=== PATIENT | female | born 1995 | race Caucasian/White ===

== ENCOUNTER → 2018-01-31 | Outpatient (REF) | payer BC | LOC: ZZSENDIN 08:55 | PROVIDERS: ATTEND Student in an Organized Health Care Education/Training Program | DX: Z3A.33 33 weeks gestation of pregnancy (principal) | CPT/HCPCS: 84112 ==

== ENCOUNTER 2018-03-14 18:29 | Inpatient (IN) | payer BC, MEDICAID ==
[~2018-03-14] VITALS: Ht 165.1 cm; Wt 94.3 kg
[~2018-03-14 18:29] MED LIST: EPIDURAL KEYS XX PRN
[2018-03-14] MEDS ORDERED: OXYTOCIN 30 UNIT/D5LR 500 ML 500 ML IV PRN (18:59)
[2018-03-14] MEDS ORDERED: FAMOTIDINE(*) 20MG/50ML PREMIX 50 ML IVPB PRN (18:59)
[2018-03-14] MEDS ORDERED: FENTANYL/ROPIVACAINE 100 ML BAG EPI PRN (19:00)
[2018-03-14] MEDS ORDERED: fentaNYL CITR 100 MCG/2 ML AMP IVP PRN (19:00)
[2018-03-14] MEDS ORDERED: LIDO/EPI 2% MPF 1:200,000 20ML EPI PRN (19:00)
[2018-03-14] MEDS ORDERED: FLUSH 10 ML SYR IVP PRN (19:00)
[2018-03-14] MEDS ORDERED: LIDOCAINE/PF 2% 200MG/10ML AMP 200 MG/10 ML AMPUL EPI PRN (19:00)
[2018-03-14] MEDS ORDERED: LIDOCAINE 1% LOCAL 300 MG/30ML INJ PRN (19:00)
[2018-03-14] MEDS ORDERED: BUPIVACAINE 0.25% MPF INJ EPI PRN (19:00)
[2018-03-14] MEDS ORDERED: fentaNYL CITR 100 MCG/2 ML AMP IT PRN (19:00)
[2018-03-14] MEDS ORDERED: cefOXitin SOD 2 GM VIAL 2 GM in NS(*) 0.9% 100 ML BAG 100 ML IVPB PRN (19:00)
[2018-03-14] MEDS ORDERED: BUPIVACAINE 0.5% INJ 30ML VIAL EPI PRN (19:00)
[2018-03-14] MEDS ORDERED: LIDOCAINE/SOD BICARB 8.4% SYR SC PRN (19:00)
[2018-03-14] MEDS ORDERED: METOCLOPRAMIDE 10 MG/2 ML SDV IVP PRN (19:00)
[2018-03-14 19:32] LABS: PLATELET COUNT, AUTOMATED 244 K/uL (150-450)
[2018-03-14 19:53] VITALS: BP 135/93; Ht 165.1 cm; Wt 94.3 kg
[2018-03-14] MEDS: LR(*) 1000 ML BAG 1,000 ML IV SCH ×2 (19:56→20:18)
--- NOTE | 2018-03-14 20:37 | History & Physical ---
History of Present Illness Age of Patient: 22 : 1 Para or TPAL: 0000 EDC per LMP: March 19, 2018 Estimated Gestational Age: 39.3 Chief Complaint loss of fluid History of Present Illness The patient is a 22 year old 1 para 0000 admitted at 39 3/7 weeks estimated gestational age with an estimated date of delivery 03/19/18 . Patient is admitted with complaint of loss of fluid. No vaginal bleeding. Good movement and occasional contractions. She was evaluated for active labor. She had course complicated by late entry to care. Her record was reviewed. Exam General Exam Cardiovascular: Regular Rate and Rhythm Respiratory: Clear to Auscultation Abdomen: Gravid - Non-Tender Extremities: No Edema Cervical Dialation: 3 Cervical Effacement (%): 95 Cervical Consistency: Soft Cervical Position: Anterior Station: -1 Presentation: Vertex Uterine Contractions(Q min): 3 Uterine Contraction Strength: Moderate Fetus Heart Tones: 130 Heart Tone Variabilty: Moderate FHT Accelerations: 15X15 FHT Category: I Medical Decision Making Data Points Result Diagram: 03/14/181924 Assessment and Plan Problems: (1) Active labor at term Assessment & Plan: patient with SROM, meconium stained, will monitor for cervical change Copies to: DAYNE ZHOU MD, JOHN MD March 14, 2018 20:37
--- NOTE | 2018-03-14 20:39 | Anesthesia OB Pre-Anes Eval ---
History of Present Illness Anesthesia Start Date: March 14, 2018 Anesthesia Start Time: 19:55 OB Anesthesia Diagnosis: spontaneous labor Result Diagram: 03/14/18 1925 Height (Inches): 65 RABIA GALLARDO CRNA March 14, 2018 20:39
--- NOTE | 2018-03-14 20:42 | Procedure Note ---
Anesthetic Placement Note Anesthesia Plan: LEB Permit for Anesthesia Signed: Yes Anesthesia Technique: Patient Sitting Anesthesia Prep: Betadine Interspace: L 3-4 Local Anesthetic: 1% Lidocaine Amount Local - cc's: 3 Anesthesia Needle: 17g Touhy/Schliff Anesthesia Attempts: 1 Loss of Resistance: Air Depth of LENORA (cm): 5 Catheter Insertion (cm): 5 Catheter Type: Escobar - Spring Wound Epidural Dressing: Tegaderm Anesthesia Medications: Epidural Test Dose: 1.5 Lido/Epi (1:200,000), Dose - mL (5), Time (2007), Negative Epidural Loading Dose: 0.2% Ropivicaine, With Fentanyl 2mcg/ml, Dose - ml (12) , Time (2013) Epidural Infusion: 0.2% Ropivicaine, With Fentanyl 2mcg/ml, Start Time: (2020) Epidural Pump Setting: Bolus Dose - mL (6), Lockout - Minutes (10), Maintenance Rate - mL/hr (10), Maximum per Hour - mL (22) Complications: None RABIA GALLARDO CRNA March 14, 2018 20:42
--- NOTE | 2018-03-14 20:45 | Anesthesia Progress Note ---
Progress/Maintenance Anesthesia Note Date: March 14, 2018 Anesthesia Note Time: 20:44 Pain Intensity: 0 Pump: On Pump Rate (ML/HR): 10 Sensory Level: t 8 Dilatation: 4 Position: Right RABIA GALLARDO CRNA March 14, 2018 20:45
[2018-03-14] MEDS ORDERED: PNV1TABL77 PO (21:23)
[2018-03-14] MEDS ORDERED: NS(*) 0.9% 1000 ML BAG 1,000 ML PV PRN (21:41)
[2018-03-15] MEDS ORDERED: ONDANSETRON 4 MG/2 ML VIAL IVP PRN (00:45)
[2018-03-15] MEDS ORDERED: ROPIVACAINE 0.2% 20 ML VIAL ONE (01:05)
--- NOTE | 2018-03-15 01:44 | Anesthesia Progress Note ---
Progress/Maintenance Anesthesia Note Date: March 15, 2018 Anesthesia Note Time: 01:05 Pain Intensity: 9 Pump: Off Dilatation: 6 Anesthesia Treatment: epidural not working. blood aspirated into syringe with 100 mcgs fentanyl RABIA GALLARDO CRNA March 15, 2018 01:44
[2018-03-15] MEDS: LR(*) 1000 ML BAG 1,000 ML IV SCH ×2 (01:48→02:31)
--- NOTE | 2018-03-15 01:55 | Procedure Note ---
Anesthetic Placement Note Anesthesia Plan: LEB Permit for Anesthesia Signed: Yes Anesthesia Technique: Patient Sitting Anesthesia Prep: Betadine Interspace: L 2-3 Local Anesthetic: 1% Lidocaine Amount Local - cc's: 3 Anesthesia Needle: 17g Touhy/Schliff Anesthesia Attempts: 2 Loss of Resistance: Air Depth of LENORA (cm): 5 Catheter Insertion (cm): 5 Catheter Type: Escobar - Spring Wound Epidural Dressing: Tegaderm Comment: aspirating blood through epidural catheter. catheter removed intact. epidural replaced one level up at L2-3 . No problems noted. good relief, pain score 0. Anesthesia Medications: Epidural Test Dose: 1.5 Lido/Epi (1:200,000), Dose - mL (5), Time (0119), Negative Epidural Loading Dose: 0.2% Ropivicaine, With Fentanyl 2mcg/ml, Dose - ml (7), Time (0125) Epidural Infusion: 0.2% Ropivicaine, With Fentanyl 2mcg/ml, Start Time: (0135) Epidural Pump Setting: Bolus Dose - mL (5), Lockout - Minutes (10), Maintenance Rate - mL/hr (12), Maximum per Hour - mL (22) Complications: None Comment: Ropivicaine/fentanyl bolus stated above was the remainder of the first epidural bag. Additional 5 ml of 0.2% ropivicaine given for a total bolus volume of 12 mls. the 2 mls of fentanyl in the syringe with blood {aspiration} was wasted. RABIA GALLARDO CRNA March 15, 2018 01:55
[2018-03-15] MEDS: ePHEDrine 25 MG/5 ML DISP.SYR IVP PRN ×3 (02:18→02:46)
--- NOTE | 2018-03-15 06:29 | OB Delivery Note ---
Delivery Note Vaginal Delivery Type: Spont. Vaginal Delivery Delivery Date: March 15, 2018 Delivery Time: 05:40 Estimated Gestational Age(wks): 39.3 Delivery Anesthesia: Epidural, Local Sex: Female Weight (gms): 2722 Apgars: 1 Minute (7), 5 Minute (8) Repair Needed: Laceration, Vaginal, Perineal, 2nd Degree Estimated Blood Loss: 350 Notes: SROM SPONTANEOUS LABOR, MADE SLOW BUT STEADY PROGRESS. PUSHED FOR 2 HOURS AND DELIVERED INFANT. BULB SUCTIONED CORD CLAMPED X 2 CUT TAKEN TO WARMER. PLACENTA DELIVERED INTACT. 2ND DEGREE TEAR REPAIRED WITH 3-0 VICRYL. Card Room Manager in Attendence: Yes Copies to: DAYNE ZHOU MD, JOHN MD March 15, 2018 06:29
[2018-03-15] MEDS ORDERED: GLYCERIN/WITCH HAZEL LEAF 1 PK TOP PRN (06:30)
[2018-03-15] MEDS ORDERED: MAGNESIUM HYDROXIDE* 30ML UDCP PO PRN (06:30)
[2018-03-15] MEDS ORDERED: MEASLES,MUMP,RUBELLA VAC 0.5ML SC ONE (06:30)
[2018-03-15] MEDS ORDERED: ACETAMINOPHEN 325 MG TAB PO PRN (06:30)
[2018-03-15] MEDS ORDERED: INFLUENZA VIRUS VAC 0.5 ML SYR IM ONLY ONE (06:30)
[2018-03-15] MEDS ORDERED: LANOLIN OINT 7 GM TUBE TP PRN (06:30)
[2018-03-15] MEDS ORDERED: DIPHTH/TETANUS/ACEL. PERTUSSIS IM ONE (06:30)
[2018-03-15] MEDS ORDERED: BENZOCAINE 20% 60 ML BTL TP PRN (06:30)
[2018-03-15] MEDS ORDERED: HYDROCORTISONE 2.5% CR 30GM TB PR PRN (06:30)
[2018-03-15] MEDS ORDERED: HYDROmorphone HCL 2 MG TAB PO PRN (06:30)
[2018-03-15] MEDS ORDERED: BUPIVACAINE 0.25% MPF INJ INFIL ONE (08:20)
[2018-03-15] MEDS: DOCUSATE CALCIUM 240 MG CAP PO SCH ×2 (08:49→20:43)
[2018-03-15] MEDS: IBUPROFEN 800 MG TAB PO SCH ×2 (08:49→16:55)
[2018-03-15] MEDS: MULTIVITAMINS (PRENATAL) TAB PO SCH (08:49)
[2018-03-15] MEDS ORDERED: BUPIV/EPI 0.25% 1:200,000 50ML INFIL ONE (09:01)
[2018-03-15 12:35] VITALS: BP 109/64
[2018-03-15 19:05] VITALS: BP 103/56
[2018-03-15 23:30] VITALS: BP 94/54
[2018-03-16] MEDS: IBUPROFEN 800 MG TAB PO SCH ×3 (01:45→17:40)
[2018-03-16 03:40] VITALS: BP 92/52
[2018-03-16] MEDS: DOCUSATE CALCIUM 240 MG CAP PO SCH ×2 (08:39→20:56)
[2018-03-16] MEDS: MULTIVITAMINS (PRENATAL) TAB PO SCH (08:39)
--- NOTE | 2018-03-16 08:39 | OB/GYN Progress Note ---
OB Subjective Progress Notes Subjective Doing well. Pain controlled and ambulating well. Voiding without difficulty. Bleeding lightening. GI: NEG Nausea : Voiding Well Pain: Mild OB Objective Physical Exam Vital Signs Date Time Temp Pulse Resp B/P (MAP) Pulse Ox O2 Delivery O2 Flow Rate FiO2 03/16/18 03:40 98.4 73 16 92/52 (65) Room Air 03/15/18 12:35 93 General Appearance: Alert/Awake/No Acute Distress Neurological: No Gross deficits Cardiovascular: Normal Rhythm & Peripheral Pulses, Regular Rate and Rhythm Respiratory: No Respiratory Distress, Clear to Auscultation Abdomen: Soft, Non-Tender, Non-Distended, Fundus Firm, Non-Tender Extremities: No Edema Psychological: Alert & Oriented X3, Appropriate Mood & Affect Result Diagram: 03/16/18 0611 Assessment and Plan PROJECT ASSISTANT Plan: Discharge Home Today Problems: (1) Active labor at term (2) care and examination immediately after delivery Assessment & Plan: Routine care today. Discharge home later. Reviewed discharge instructions and to be seen at 6 weeks. Call with issues. DORON JUAREZ MD March 16, 2018 08:39
[2018-03-16 08:40] VITALS: BP 116/66
[2018-03-16] MEDS ORDERED: IBUP800T37 PO (08:42)
--- NOTE | 2018-03-16 08:44 | OB/GYN Discharge Summary ---
Discharge Summary Reason for Hosp/Final Diag: (1) Active labor at term (2) care and examination immediately after delivery Hospital Course & Plan: Routine care today. Discharge home later. Reviewed discharge instructions and to be seen at 6 weeks. Call with issues. Lates Vital Signs Vital Signs Date Time Temp Pulse Resp B/P (MAP) Pulse Ox O2 Delivery O2 Flow Rate FiO2 03/16/18 03:40 98.4 73 16 92/52 (65) Room Air 03/15/18 12:35 93 Weight (Pounds): 208 Result Diagram: 03/16/18 0611 Condition: Improved Discharge: Home, Self [facility] Meds Reported Medications Pnv Cmb#21/Iron/Folic Acid ( COMPLETE CAPLET) 1 Each Tablet, 1 EACH PO 03/14/18 Follow up Referrals: [facility] - In 6 Weeks @ [facility] with Jonah Huerta Md Follow up with: Dr. Huerta [phone] Follow up in: 6 wks PP or PO Discharge Diet: As Tolerates Discharge Activity: As Tolerates, No Heavy Lifting x 6 wks, No Heavy Lifting > 10lb, Pelvic Rest Copies to: JONAH HUERTA MD, TRAVIS MD March 16, 2018 08:44
[2018-03-16] MEDS: LR(*) 1000 ML BAG 1,000 ML IV SCH ×2 (10:59→20:59)
[2018-03-16 14:00] VITALS: BP 117/73
[2018-03-16 19:25] VITALS: BP 111/71
[2018-03-16 23:00] VITALS: BP 100/58
[2018-03-17] MEDS: IBUPROFEN 800 MG TAB PO SCH ×2 (01:00→08:32)
[2018-03-17 03:15] VITALS: BP 97/60
--- NOTE | 2018-03-17 07:30 | OB/GYN Progress Note ---
OB Subjective Progress Notes Subjective Pain controlled, Tolerating diet and activity. Baby . Normal lochia. GI: POS Flatus, NEG Nausea, NEG Vomiting : Voiding Well Pain: Mild OB Objective Physical Exam Vital Signs Date Time Temp Pulse Resp B/P (MAP) Pulse Ox O2 Delivery O2 Flow Rate FiO2 03/17/18 03:15 98.1 69 16 97/60 (72) Room Air 03/15/18 12:35 93 General Appearance: Alert/Awake/No Acute Distress Neurological: No Gross deficits Cardiovascular: Normal Rhythm & Peripheral Pulses, Regular Rate and Rhythm Respiratory: No Respiratory Distress, Clear to Auscultation Abdomen: Soft, Non-Tender, Non-Distended, Fundus Firm, Non-Tender Extremities: No Edema Psychological: Alert & Oriented X3, Appropriate Mood & Affect Result Diagram: 03/16/18 0611 Assessment and Plan Problems: (1) Active labor at term (2) care and examination immediately after delivery Assessment & Plan: Pain controlled, Tolerating diet and activity. Baby . Normal lochia. DAYNE ZHOU MD March 17, 2018 07:30
[2018-03-17 08:30] VITALS: BP 108/64
[2018-03-17] MEDS: DOCUSATE CALCIUM 240 MG CAP PO SCH (08:31)
[2018-03-17] MEDS: MULTIVITAMINS (PRENATAL) TAB PO SCH (08:31)
== END 2018-03-17 13:22 | disposition home or self-care (01) | DRG 775 ==
LOC: OB 18:29 → OBSVTOIN 18:29
PROVIDERS: ADMIT Obstetrics & Gynecology; ATTEND Obstetrics & Gynecology
PROC: 10E0XZZ Delivery of Products of Conception, External Approach (ICD-10-PCS; principal; 2018-03-15)
PROC: 0KQM0ZZ Repair Perineum Muscle, Open Approach (ICD-10-PCS; 2018-03-15)
DX: O77.0 Labor and delivery complicated by meconium in amniotic fluid (principal); O70.1 Second degree perineal laceration during delivery; Z3A.39 39 weeks gestation of pregnancy; Z37.0 Single live birth
CPT/HCPCS: 36415; 85025; 85027; 86850; 86900; 86901; J2405; J2590; J2795; J3010; J7120; S0020

== ENCOUNTER → 2019-05-17 | Outpatient (CLI) | payer BC, MEDICAID ==
[2018-03-14 19:53] VITALS: BMI 34.6
[~2019-05-17] MED LIST changes: -EPIDURAL KEYS XX PRN; +ESCI10TA8 PO; +HYDR-4225 PO; +IBUP800T37 PO; +IOPAMIDOL 76% 100 ML INFUS BTL 100 ML ONE; +NS(*) 0.9% 50 ML BAG 50 ML ONE; +ONDA4TAB9 PO; +PNV1TABL77 PO; +TRAM-420 PO
--- NOTE | 2019-05-17 18:45 | RADIOLOGY IMAGING REPORT ---
FACILITY: [facility] [place] PATIENT NAME: Anya Robledo : 1995 MR: [id number] V: [id number] EXAM DATE: ORDERING PHYSICIAN: DAYNE MONTELONGO TECHNOLOGIST: Location: [facility] - [place] Patient: Anya Robledo : 1995 Visit/Account:[id number] Date of Sevice: 05/17/2019 CT angiogram chest with contrast Indication: Chest pain. Shortness of breath. Comparison: None available. Technique: Axial CT images are obtained through the chest after administration of 75 mL Isovue 370 IV contrast. Reformatted coronal and sagittal images were reviewed as well as coronal MIP images. One of the following dose optimization techniques was utilized in the performance of this exam: auto mated exposure control; adjustment of the mA and/or kV according to the patient's size; or use of an iterative reconstruction technique. Specific details can be referenced in the facility's radiology C T exam operational policy. FINDINGS: No evidence of filling defect within the pulmonary vasculature to suggest pulmonary embolus. Heart is normal size without pericardial effusion. Aorta shows no aneurysm or dissection. Mediastinum and hilar regions show no enlarged lymph node or abnormal density. Residual thymus. Lungs show no consolidation, pleural effusion, pneumothorax, nodule or focal interstitial opacities. Airways are clear. Bony structures show no acute fractures or aggressive bony lesions. Chest wall shows no enlarged axil shahla lymph nodes or masses. Limited views of the upper abdomen are unremarkable. IMPRESSION: 1. No evidence of pulmonary embolus. 2. No acute cardiothoracic abnormality Report Dictated By: Tonio Green at 05/17/2019 6:30 PM Report E-Signed By: Tonio Green at 05/17/2019 6:38 PM WSN:[id number]
== END ==
LOC: LAB 17:49
PROVIDERS: ATTEND Nurse Practitioner Family
DX: R07.9 Chest pain, unspecified (principal); R79.1 Abnormal coagulation profile
CPT/HCPCS: 71275; J7050; Q9967

== ENCOUNTER 2019-05-21 06:05 | Emergency (ER) | payer BC, MEDICAID ==
[2018-03-14 19:53] VITALS: Wt 94.3 kg
[~2019-05-21 06:05] MED LIST changes: -ESCI10TA8 PO; -HYDR-4225 PO; -IOPAMIDOL 76% 100 ML INFUS BTL 100 ML ONE; -NS(*) 0.9% 50 ML BAG 50 ML ONE; -ONDA4TAB9 PO; -TRAM-420 PO
[2019-05-21] MEDS ORDERED: HYDR-4225 PO (06:22)
[2019-05-21] MEDS ORDERED: ESCI10TA8 PO (06:22)
--- NOTE | 2019-05-21 06:22 | ER Report ---
History and Physical Time Seen By MD: 06:19 Hx. of Stated Complaint: PATIENT HAS BEEN HAVING PAIN IN HER UPPER BACK/NECK STIFFNESS, DIZZINESS AND A LOT OF NAUSEA, PATIENT STATES THAT IT SEEM LIKE SHE HAS A FLIM IN HER VISUAL FIELD, CAN'T FOCUS SIGHT. SYMPTOMS STARTED ON TUESDAY, SHE WAS SEEN AT URGENT CARE, THEY SENT HER FOR A SCAN OF CHEST TO CHECK FOR BLOOD CLOTS, EVERYTHING WAS NEGATIVE. PATIENT HAS A HEADACHE IN BUDDHIST, FEELS LIKE PRESSURE. (ROBERTA CAMEJO MD) Time Seen By MD: 07:16 (FORTUNATO CONTRERAS DO) HPI/ROS CHIEF COMPLAINT: multiple symptoms HISTORY OF PRESENT ILLNESS: This is a 23 year old female. Since , she has not been feeling well, about 4 days now. She has headache with vision changes. Headache is a pressure feeling throughout the head, rated about a 4 on 1-10 scale. Constant. Associated vision changes with difficulty focusing vision and a sensation of a film over her vision. She has had ongoing nausea as well, but no vomiting. Poor appetite because even thinking about eating will cause the nausea as well. She has been dizzy with a lightheaded feeling. She thought this could be due to , but had a negative home test. She denies cough of shortness of breath. No chest pain. She has no abdominal pain. She has no dysuria, no diarrhea. She does have pain in her neck, cervical spine, that worsens with flexion. She denies sore throat. REVIEW OF SYSTEMS: As above. (ROBERTA CAMEJO MD) HPI/ROS Please see Dr. Camejo note (FORTUNATO CONTRERAS DO) Allergies: Coded Allergies: No Known Drug Allergies (Unverified , 05/21/19) Home Meds Active Scripts Ondansetron 4 Mg Odt (ONDANSETRON 4 MG ODT) 4 Mg Tab.rapdis, 4 MG PO ONCE, #30 TAB Prov:FORTUNATO CONTRERAS DO 05/21/19 Tramadol Hcl (TRAMADOL HCL) 50 Mg Tablet, 50 MG PO Q6H PRN for PAIN, #12 TAB 0 Refills Prov:FORTUNATO CONTRERAS DO 05/21/19 Reported Medications Hydroxyzine Hcl (HYDROXYZINE HCL) 25 Mg Tablet, 1 TAB PO PRN for Anxiety 05/21/19 Escitalopram Oxalate (ESCITALOPRAM OXALATE) 10 Mg Tablet, 10 MG PO QDAY, TAB 05/21/19 Discontinued Reported Medications Pnv Cmb#21/Iron/Folic Acid ( COMPLETE CAPLET) 1 Each Tablet, 1 EACH PO 03/14/18 Discontinued Scripts Ibuprofen (IBUPROFEN) 800 Mg Tablet, 800 MG PO Q8H PRN for PAIN, #30 TAB 0 Refills Prov:DORON JUAREZ MD 03/16/18 Past Medical/Surgical History Sinus infections and excess ear wax production, history of tonsillectomy and wisdom teeth extraction (ROBERTA CAMEJO MD) Reviewed Nurses Notes: Yes (ROBERTA CAMEJO MD) Hx Smoking: No Smoking Status: Never Smoker Exposure to Second Hand Smoke?: No (ROBERTA CAMEJO MD) Constitutional Vital Sign - Last 24 Hours 05/21/19 05/21/19 05/21/19 05/21/19 06:10 06:20 06:30 06:35 Temp 98.0 Pulse 75 85 90 Resp 15 21 18 B/P (MAP) 117/76 115/77 (90) Pulse Ox 96 96 97 O2 Delivery Room Air 05/21/19 05/21/19 05/21/19 05/21/19 06:50 07:00 07:05 07:20 Pulse 82 82 92 Resp 13 18 24 B/P (MAP) 115/80 (92) Pulse Ox 96 96 91 (CONTRERAS,FORTUNATO S DO) Physical Exam General Appearance: The patient is alert. No acute distress. Non-toxic in appearance. Eyes: Pupils are equal, round. Reactive to light. No pallor, injection or icterus. Extraocular movements are intact. No nystagmus. ENT: Mucous membranes are moist. Normal oral mucosa. Posterior oropharynx is normal. Normal nasal mucosa. Has cerumen in both ears, small amount in the left ear, larger amount in the right ear. Right ear canal is a little inflamed. Otherwise normal tympanic membranes and canals Neck: Supple and non tender. No lymphadenopathy. Respiratory: Lungs are clear to auscultation. There are no retractions or accessory muscle use. Cardiovascular: Regular rate and rhythm. No murmurs, gallops or rubs. Normal capillary refill. No edema. Gastrointestinal: Abdomen is soft and non tender. Nondistended. Normal active b owel sounds. No costovertebral angle tenderness with percussion. Neurological: Alert and oriented x3. Cranial nerves II through XII show no acute deficits on my exam. No focal neurologic deficits in the extremities. Positive Brudzinski's, negative Kernig sign Skin: Warm and dry. No rashes. Musculoskeletal: Extremities are nontender. Full range of motion. No tenderness in palpation of the thoracic and lumbar spine. She does have pain in the cervical spine. DIFFERENTIAL DIAGNOSIS: After history and physical exam, differential diagnosis was considered for patient with fever, headache, neck pain, dizziness, vision changes. At this point we'll do a workup looking for causes of fever, we'll get a CT scan of the head, and we'll need to consider possible meningitis as well. (ROBERTA CAMEJO MD) Physical Exam Please see Dr. Camejo note (FORTUNATO CONTRERAS DO) Medical Decision Making Data Points Result Diagram: 05/21/19 0648 05/21/19 0648 Laboratory Hematology Test 05/21/19 06:48 White Blood Count 7.1 k/uL (4.5-11.0) Red Blood Count 5.03 M/uL (4.17-5.56) Hemoglobin 15.0 g/dL (12.0-16.0) Hematocrit 43.5 % (34.0-47.0) Mean Corpuscular Volume 86.5 fL (80.0-96.0) Mean Corpuscular Hemoglobin 29.9 pg (26.0-33.0) Mean Corpuscular Hemoglobin Concent 34.5 g/dL (32.0-36.0) Red Cell Distribution Width 13.6 % (11.5-14.5) Platelet Count 242 K/uL (150-450) Mean Platelet Volume 8.8 fL (7.2-11.1) Neutrophils (%) (Auto) 51.7 % (39.4-72.5) Lymphocytes (%) (Auto) 35.7 % (17.6-49.6) Monocytes (%) (Auto) 9.2 % (4.1-12.4) Eosinophils (%) (Auto) 2.8 % (0.4-6.7) Basophils (%) (Auto) 0.6 % (0.3-1.4) Nucleated RBC Relative Count (auto) 0.1 /100WBC Neutrophils # (Auto) 3.7 K/uL (2.0-7.4) Lymphocytes # (Auto) 2.5 K/uL (1.3-3.6) Monocytes # (Auto) 0.7 K/uL (0.3-1.0) Eosinophils # (Auto) 0.2 K/uL (0.0-0.5) Basophils # (Auto) 0.0 K/uL (0.0-0.1) Nucleated RBC Absolute Count (auto) 0.01 K/uL Chemistry Test 05/21/19 06:48 Sodium Level 140 mmol/L (137-145) Potassium Level 3.7 mmol/L (3.5-5.0) Chloride Level 108 mmol/L (98-107) Carbon Dioxide Level 20 mmol/L (22-31) Blood Urea Nitrogen 12 mg/dl (7-18) Creatinine 0.80 mg/dl (0.52-1.04) Glomerular Filtration Rate Calc > 60.0 Random Glucose 89 mg/dl (75-110) Calcium Level 9.6 mg/dl (8.4-10.2) Total Bilirubin 0.6 mg/dl (0.2-1.3) Aspartate Amino Transf (AST/SGOT) 22 U/L (0-35) Alanine Aminotransferase (ALT/SGPT) 30 U/L (0-56) Alkaline Phosphatase 82 U/L (0-126) Total Protein 7.7 g/dl (6.3-8.2) Albumin 4.6 g/dl (3.5-5.0) Thyroid Stimulating Hormone (TSH) 3.82 uIU/ml (0.46-4.68) Human Chorionic Gonadotropin, Qual Negative (NEGATIVE) Serology Test 05/21/19 06:48 Urinalysis Test 05/21/19 08:30 Urine Color Yellow Urine Clarity Slightly-cloudy Urine pH 5.0 pH (4.8-9.5) Urine Specific [place] 1.013 Urine Protein Negative mg/dL (NEGATIVE) Urine Glucose (UA) Negative mg/dL (NEGATIVE) Urine Ketones Trace mg/dL (NEGATIVE) Urine Blood Small (NEGATIVE) Urine Nitrite Negative (NEGATIVE) Urine Bilirubin Negative (NEGATIVE) Urine Urobilinogen Negative mg/dL (0.2-1.9) Urine Leukocyte Esterase Negative (NEGATIVE) Urine RBC 1 /HPF (0-2/HPF) Urine WBC 3 /HPF (0-5/HPF) Urine Squamous Epithelial Cells Many /LPF (</=FEW) Urine Transitional Epithelial Cells Few /LPF (NONE-FEW) Urine Bacteria Negative /HPF (NONE-FEW) Urine Mucus None /HPF (NONE-FEW) (FORTUNATO CONTRERAS DO) Microbiology Microbiology Date/Time Source Procedure Growth Status 05/21/19 07:37 Blood Blood Culture - Preliminary NO GROWTH SO FAR, SET LATE. REINCUBATED Resulted 05/21/19 06:48 Blood Blood Culture - Preliminary NO GROWTH SO FAR, SET LATE. REINCUBATED Resulted 05/21/19 11:14 Cerebrospinal Fluid Gram Stain - Final Resulted 05/21/19 11:14 Cerebrospinal Fluid CSF Culture Pending Resulted (FORTUNATO CONTRERAS DO) EKG/Imaging Imaging PATIENT NAME: Anya Robledo : 1995 MR: [id number] V: [id number] EXAM DATE: ORDERING PHYSICIAN: ROBERTA CAMEJO TECHNOLOGIST: Location: [facility] [place] Patient: Anya Robledo : 1995 Visit/Account:[id number] Date of Sevice: 05/21/2019 CT BRAIN NO CONTRAST HISTORY: Headache. COMPARISON STUDIES: None TECHNIQUE: Contiguous axial images were obtained from the skull base to the vertex. One of the following dose optimization techniques was utilized in the performance of this exam: automated exposure control; adjustment of the mA and/or kv according to patient size; or use of iterative reconstruction technique. Specific details can be referenced in the facility's radiology CT exam operational policy. FINDINGS: Hemorrhage: Negative Ventricles / sulci / fissures: Negative Masses / midline shift: Negative White matter: Negative Springer-white differentiation: Negative Vessels: Negative Extra-axial spaces: Negative Bones/skull base: Negative Visualized mastoid air cells / paranasal sinuses: Negative Scalp and soft tissues: Negative. Other findings: None significant IMPRESSION: 1. Normal noncontrast head CT. Report Dictated By: Bhaskar Post MD at 05/21/2019 8:19 AM Report E-Signed By: Bhaskar Post MD at 05/21/2019 8:22 AM WSN:[email or web address] PATIENT NAME: Anya Robledo : 1995 MR: [id number] V: [id number] EXAM DATE: ORDERING PHYSICIAN: ROBERTA CAMEJO TECHNOLOGIST: Location: [facility] [place] Patient: Anya Robledo : 1995 Visit/Account:[id number] Date of Sevice: 05/21/2019 CHEST PA LAT HISTORY: fever, headache COMPARISON: 05/17/2019 FINDINGS: Cardiomediastinal contours: Normal Lungs and pleura: Normal Bones/soft tissues: Normal Other findings: None significant IMPRESSION: 1. Normal chest. No change. (FORTUNATO CONTRERAS DO) ED Course/Re-evaluation Clinical Indication for ER IV: Hydration, IV Access (ROBERTA CAMEJO MD) ED Course I assumed patient care from Dr. Camejo note. Initial lumbar puncture attempt was performed by me and was initially unsuccessful as the patient became very anxio us and panicked. Patient was given anxiolytics which significantly improved her anxiety. The patient was discussed with Dr. Marin with anesthesiology came down and was able to obtain a CSF sample. CSF sample was noninfectious appearing however culture was sent and is pending. CT imaging of the head and chest x-ray were unremarkable. I reevaluated the patient and she remained hemodynamically stable throughout course. I discussed the findings with the patient the patient's family and they voiced understanding. Recommend close PCP follow-up. Return precautions provided. Prescription provided for tramadol, Zofran. Decision to Disposition Date: May 21, 2019 Decision to Disposition Time: 13:19 (FORTUNATO CONTRERAS DO) Depart Departure Latest Vital Signs Vital Signs Date Time Temp Pulse Resp B/P (MAP) Pulse Ox O2 Delivery O2 Flow Rate FiO2 05/21/19 07:20 92 24 91 05/21/19 07:00 115/80 (92) 05/21/19 06:10 98.0 Room Air (FORTUNATO CONTRERAS DO) Impression: Primary Impression: Headache Additional Impression: Fever Condition: Improved Disposition: HOME OR SELF-CARE Referrals: BERNABE TIPTON DO (PCP) New Scripts Ondansetron 4 Mg Odt (ONDANSETRON 4 MG ODT) 4 Mg Tab.rapdis 4 MG PO ONCE, #30 TAB Prov: FORTUNATO CONTRERAS DO 05/21/19 Tramadol Hcl (TRAMADOL HCL) 50 Mg Tablet 50 MG PO Q6H PRN for PAIN, #12 TAB 0 Refills Prov: FORTUNATO CONTRERAS DO 05/21/19 Patient Instructions: Acute Headache (ED) Additional Instructions: Please drink plenty of water. You may take Zofran 1 tablet every 4-6 hours as needed for nausea and vomiting. You may take tramadol 1 tablet every 6-8 hours as needed for breakthrough pain control. Please return immediately if you develop visual changes, worsening headache, inability to keep down food or fluids, high fevers, chest pain or trouble breathing, abdominal pain. Please follow-up in the next 24-48 hours with your family provider Problem Qualifiers ROBERTA CAMEJO MD May 21, 2019 06:22 FORTUNATO CONTRERAS DO May 21, 2019 07:20
[2019-05-21] MEDS ORDERED: ONDANSETRON 4 MG/2 ML VIAL IVP ONE (06:40)
[2019-05-21] MEDS ORDERED: NS(*) 0.9% 1000 ML BAG 1,000 ML IV ONE (06:40)
[2019-05-21 07:17] LABS: PLATELET COUNT, AUTOMATED 242 K/uL (150-450)
--- NOTE | 2019-05-21 08:29 | RADIOLOGY IMAGING REPORT ---
FACILITY: [facility] PATIENT NAME: Anya Robledo : 1995 MR: [id number] V: [id number] EXAM DATE: ORDERING PHYSICIAN: ROBERTA COHEN TECHNOLOGIST: Location: [facility] Patient: Anya Robledo : 1995 Visit/Account:[id number] Date of Sevice: 05/21/2019 CT BRAIN NO CONTRAST HISTORY: Headache. COMPARISON STUDIES: None TECHNIQUE: Contiguous axial images were obtained from the skull base to the vertex. One of the [employer] dose optimization techniques was utilized in the performance of this exam: automated exposure co ntrol; adjustment of the mA and/or kv according to patient size; or use of iterative reconstruction t echnique. Specific details can be referenced in the facility's radiology CT exam operational policy. FINDINGS: Hemorrhage: Negative Ventricles / sulci / fissures: Negative Masses / midline shift: Negative White matter: Negative Springer-white differentiation: Negative Vessels: Negative Extra-axial spaces: Negative Bones/skull base: Negative Visualized mastoid air cells / paranasal sinuses: Negative Scalp and soft tissues: Negative. Other findings: None significant IMPRESSION: 1. Normal noncontrast head CT. Report Dictated By: Bhaskar Post MD at 05/21/2019 8:19 AM Report E-Signed By: Bhaskar Post MD at 05/21/2019 8:22 AM WSN:[id number]
--- NOTE | 2019-05-21 08:48 | RADIOLOGY IMAGING REPORT ---
FACILITY: [facility] PATIENT NAME: Anya Robledo : 1995 MR: [id number] V: [id number] EXAM DATE: ORDERING PHYSICIAN: ROBERTA COHEN TECHNOLOGIST: Location: [facility] Patient: Anya Robledo : 1995 Visit/Account:[id number] Date of Sevice: 05/21/2019 CHEST PA LAT HISTORY: fever, headache COMPARISON: 05/17/2019 FINDINGS: Cardiomediastinal contours: Normal Lungs and pleura: Normal Bones/soft tissues: Normal Other findings: None significant IMPRESSION: 1. Normal chest. No change. Report Dictated By: Bhaskar Post MD at 05/21/2019 8:40 AM Report E-Signed By: Bhaskar Post MD at 05/21/2019 8:41 AM WSN:[id number]
[2019-05-21] MEDS ORDERED: LORazepam 2 MG/ML VIAL IVP ONE (09:40)
[2019-05-21] MEDS ORDERED: fentaNYL CITR 100 MCG/2 ML AMP IVP ONE (09:40)
[2019-05-21 13:00] VITALS: BP 123/86
[2019-05-21] MEDS ORDERED: ONDA4TAB9 PO (13:25)
[2019-05-21] MEDS ORDERED: TRAM-420 PO (13:25)
== END 2019-05-21 13:44 | disposition home or self-care (01) ==
LOC: ER 06:23
DX: R51 Headache (principal); R50.9 Fever, unspecified; Z79.899 Other long term (current) drug therapy
CPT/HCPCS: 36415; 71046; 81001; 82945; 84157; 84443; 84703; 85025; 86788; 86789; 87040; 87070; 87088; 87205; 89050; 96361; 96374; 96375; 99283; J2060; J2405; J3010; J7030; 70450; 82040; 82247; 82310; 82374; 82435; 82565; 82947; 84075; 84132; 84155; 84295; 84450; 84460; 84520

== ENCOUNTER 2019-06-11 01:21 | Emergency (ER) | payer BC, MEDICAID ==
[2018-03-14 19:53] VITALS: Wt 93.4 kg
[~2019-06-11 01:21] MED LIST changes: +ESCI10TA8 PO; +HYDR-4225 PO; +ONDA4TAB9 PO; +TRAM-420 PO
[2019-06-11 01:25] VITALS: BP 135/88
[2019-06-11] MEDS ORDERED: BUPR-126 PO (01:33)
[2019-06-11] MEDS ORDERED: MEDR150V11 IM (01:33)
--- NOTE | 2019-06-11 01:41 | ER Report ---
History and Physical Time Seen By MD: 01:15 HPI/ROS CHIEF COMPLAINT: dysuria HISTORY OF PRESENT ILLNESS: Pt started earlier this week with painful urination, increased frequency and sombe back pain. PT went to pcp and they dx with uti. PT was placed on 3 days of bactrim. PT started to feel better and finished her dosage yesterday.Today symptoms of burning returned. Pt went to [facility] and took AZO and it seemed to help. Tonight woke up and symptoms worsened. no fevers. Had nausea but resolved. never had uti before. PT denies being sexually active. Pt denies pelvic pain. REVIEW OF SYSTEMS: Constitutional: No fever, no chills. Eyes: No discharge. ENT: No sore throat. Cardiovascular: No chest pain, no palpitations. Respiratory: No cough, no shortness of breath. Gastrointestinal: No abdominal pain, no vomiting. Genitourinary: + dysuria, + frequency Musculoskeletal: No back pain. Skin: No rashes. Neurological: No headache. Allergies: Coded Allergies: No Known Drug Allergies (Unverified , 06/11/19) Home Meds Reported Medications Medroxyprogesterone Acetate (DEPO-PROVERA) 150 Mg/1 Ml Vial, 150 MG IM EVERY THREE MONTHS, VIAL 06/11/19 Bupropion Hcl (WELLBUTRIN SR) 150 Mg Tablet.er, 150 MG PO QDAY, TAB 06/11/19 Discontinued Reported Medications Hydroxyzine Hcl (HYDROXYZINE HCL) 25 Mg Tablet, 1 TAB PO PRN for Anxiety 05/21/19 Escitalopram Oxalate (ESCITALOPRAM OXALATE) 10 Mg Tablet, 10 MG PO QDAY, TAB 05/21/19 Discontinued Scripts Ondansetron 4 Mg Odt (ONDANSETRON 4 MG ODT) 4 Mg Tab.rapdis, 4 MG PO ONCE, #30 TAB Prov:FORTUNATO CONTRERAS DO 05/21/19 Tramadol Hcl (TRAMADOL HCL) 50 Mg Tablet, 50 MG PO Q6H PRN for PAIN, #12 TAB 0 Refills Prov:FORTUNATO CONTRERAS DO 05/21/19 Past Medical/Surgical History Pmhx: uti Pshx: widsom teeth, TA Reviewed Nurses Notes: Yes Old Medical Records Reviewed: Yes Hx Smoking: No Smoking Status: Never Smoker Exposure to Second Hand Smoke?: No Hx Substance Use Disorder: No Hx Alcohol Use: Yes (5DRINKS MONTH) Constitutional Vital Sign - Last 24 Hours 06/11/19 01:25 Temp 97.7 Pulse 90 Resp 20 B/P (MAP) 135/88 Pulse Ox 97 O2 Delivery Room Air Physical Exam General Appearance: The patient is alert, pt appears anxious and tearful Eyes: Pupils equal and round no pallor or injection, EOMI ENT: no pharyngeal erythema or exudates, Mucous membranes are moist, TM are nl b/l Respiratory: There are no retractions, lungs are clear to auscultation. Cardiovascular: Regular rate and rhythm. pulses are equal and symmetrical Gastrointestinal: Abdomen is soft and non tender, no masses, bowel sounds normal, no guarding, no rigidity or rebound Neurological: Cranial nerves II-XII grossly intact, no sensory or motor loss Skin: Warm and dry, no rashes. Musculoskeletal: Neck is supple non tender, no vertebral tenderness, neg cva tenderness Extremities are nontender, nonswollen and have full range of motion. DIFFERENTIAL DIAGNOSIS: After history and physical exam differential diagnosis was considered for uti, pyelo, kidney stone, , std Medical Decision Making Data Points Laboratory Urinalysis Test 06/11/19 01:26 Urine Color [place] Urine Clarity Clear Urine pH 6.0 pH (4.8-9.5) Urine Specific [place] 1.018 Urine Protein Negative mg/dL (NEGATIVE) Urine Glucose (UA) Negative mg/dL (NEGATIVE) Urine Ketones Negative mg/dL (NEGATIVE) Urine Blood Negative (NEGATIVE) Urine Nitrite Positive (NEGATIVE) Urine Bilirubin Negative (NEGATIVE) Urine Urobilinogen 4.0 mg/dL (0.2-1.9) Urine Leukocyte Esterase Negative (NEGATIVE) Urine RBC <1 /HPF (0-2/HPF) Urine WBC 2 /HPF (0-5/HPF) Urine Squamous Epithelial Cells Many /LPF (</=FEW) Urine Bacteria Few /HPF (NONE-FEW) Urine Mucus None /HPF (NONE-FEW) Urine HCG, Qualitative Negative (NEGATIVE) ED Course/Re-evaluation ED Course check urine Decision to Disposition Date: Jun 11, 2019 Decision to Disposition Time: 01:50 Depart Departure Latest Vital Signs Vital Signs Date Time Temp Pulse Resp B/P (MAP) Pulse Ox O2 Delivery O2 Flow Rate FiO2 06/11/19 01:25 97.7 90 20 135/88 97 Room Air Impression: Primary Impression: UTI (urinary tract infection) Condition: Stable Disposition: HOME OR SELF-CARE Referrals: BERNABE TIPTON DO (PCP) 2 Days New Scripts Ciprofloxacin 500 Mg Tab (CIPROFLOXACIN 500 MG TAB) 500 Mg Tablet 500 MG PO BID, #10 TAB Prov: SUNDAY DÍAZ DO 06/11/19 Patient Instructions: Urinary Tract Infection in Women (ED) Additional Instructions: Cipro twice a day until finished. We sent your urine off for culture. If symptoms worsen, follow up with your family doctor or return to the emergency department. Problem Qualifiers Primary Impression: UTI (urinary tract infection) Urinary tract infection type: site unspecified Hematuria presence: without hematuria Qualified Codes: N39.0 - Urinary tract infection, site not specified SUNDAY DÍAZ DO Jun 11, 2019 01:41
[2019-06-11] MEDS ORDERED: CIPR-214 PO (01:55)
[2019-06-11] MEDS ORDERED: CIPROFLOXACIN 500 MG TAB PO ONE (01:55)
== END 2019-06-11 02:02 | disposition home or self-care (01) ==
LOC: ER 01:27
DX: N39.0 Urinary tract infection, site not specified (principal)
CPT/HCPCS: 81001; 81025; 87088; 99283